=== PATIENT | male | born 1990 | race Caucasian/White ===

== ENCOUNTER 2019-07-09 10:32 | Emergency (ER) | payer MEDICAID ==
[~2019-07-09] VITALS: Ht 177.8 cm; Wt 68.2 kg
[~2019-07-09 10:32] MED LIST: NO HOME MEDS
--- NOTE | 2019-07-09 12:00 | NUR ---
Pt arrived ambulating self accompanied by [facility] officer Kelby. Per officer, Pt was found to be confused under the [employer] [address]. Pt was brought in her for confusion. Pt told Officer that he has a Hx of schizophrenia and is not taking his medications. He was admitted into bed 26. He was given [facility] scrubs and personal items and clothing were inventoried and locked in storage. He was given assistance for hygiene and given crackers, juice and ice water. Labs and urine obtained without incident. Orders placed. He appears confused but directable. He also appears to be responding to internal stimuli. He is unkempt and unclean. He is unable to state if he has significant medical history, medications, or allergies. Pt was seen in [facility] in 2016 for a significant suicide attempt.
[2019-07-09] MEDS ORDERED: nicotine 21mg patch - 24 hr TD ONE (12:25)
[2019-07-09 12:26] LABS: BASOPHILS # (AUTO) 0.1 X10'3 (0-0.2); BASOPHILS % (AUTO) 0.8 % (0-1); EOSINOPHILS # (AUTO) 0.3 X10'3 (0-0.9); EOSINOPHILS % (AUTO) 5.1 % (0-6); HEMATOCRIT 42.8 % (42.0-52.0); HEMOGLOBIN 14.3 g/dl (14.0-17.9); LYMPHOCYTES # (AUTO) 1.6 X10'3 (1.1-4.8); LYMPHOCYTES % (AUTO) 23.4 % (21-51); MEAN CORPUSCULAR HEMOGLOBIN 30.9 PG (27.0-31.0); MEAN CORPUSCULAR HGB CONC 33.4 g/dL (33.0-36.5); MEAN CORPUSCULAR VOLUME 92.6 FL (78-98); MEAN PLATELET VOLUME 8.4 FL (7.4-10.4); MONOCYTES # (AUTO) 0.7 X10'3 (0-0.9); MONOCYTES % (AUTO) 10.8 % (2-12); NEUTROPHILS # (AUTO) 4.1 X10'3 (1.8-7.7); NEUTROPHILS % (AUTO) 59.9 % (42-75); PLATELET COUNT 245 X10'3 (140-440); RED BLOOD COUNT 4.63 X10'6 (4.70-6.10); WHITE BLOOD COUNT 6.8 X10'3 (4.5-11.0)
[2019-07-09] MEDS: OLANZapine 2.5MG tablet PO SCH (12:31)
[2019-07-09 12:35] LABS: URINE AMPHETAMINE SCREEN POSITIVE (Neg); URINE BARBITUATE SCREEN NEGATIVE (Neg); URINE BENZODIAZEPINES SCREEN NEGATIVE (Neg); URINE CANNABINOID SCREEN POSITIVE (Neg); URINE COCAINE SCREEN NEGATIVE (Neg); URINE METHADONE SCREEN NEGATIVE (Neg); URINE OPIATE SCREEN NEGATIVE (Neg); URINE PHENCYCLIDINE SCREEN NEGATIVE (Neg)
[2019-07-09 12:40] LABS: ALANINE AMINOTRANSFERASE 44 U/L (12-78); ALBUMIN 4.1 G/DL (3.4-5.0); ALKALINE PHOSPHATASE 50 IU/L (46-116); ANION GAP 5 (8-16); ASPARTATE AMINO TRANSFERASE 28 U/L (10-37); BILIRUBIN,TOTAL 0.7 MG/DL (0.1-1.0); BLOOD UREA NITROGEN 13 MG/DL (7-18); BUN/CREATININE RATIO 13.4 (5.4-32.0); CHLORIDE 106 MMOL/L (99-107); CREATININE 0.97 MG/DL (0.60-1.10); ETHANOL < 0.010 GM/DL (0.0-0.010); GLUCOSE 99 MG/DL (70-104); POTASSIUM 4.1 MMOL/L (3.5-5.1); SODIUM 142 MMOL/L (135-145); TOTAL PROTEIN 8.1 G/DL (6.4-8.2); eGFR > 90 ML/MIN
--- NOTE | 2019-07-09 12:45 | NUR ---
Pt appears to be responding to internal stimuli and UA positive for meth. ordered oral Zyprexa and this was given without incident. Pt also stated that he smokes a pack of cigarettes a day. 21 mg patch was ordered and administered without incident. Pt continued to pace and request to go smoke. Explained to Pt that the patch should help him. Pt was redirectable but needed repeated reinforcement. Will continue to monitor.
--- NOTE | 2019-07-09 13:14 | NUR ---
Pt is eating lunch at bedside. No distress observed. Will continue to monitor.
--- NOTE | 2019-07-09 13:23 | NUR ---
Pt is pacing and appears anxious. MD ordered Ativan 2mg once.
[2019-07-09] MEDS ORDERED: LORazepam 1 MG tablet PO ONE (13:25)
--- NOTE | 2019-07-09 13:29 | NUR ---
Pt took oral Ativan without incident. Will continue to monitor.
--- NOTE | 2019-07-09 15:29 | NUR ---
Pt is resting in bed, supine with legs bent and knees up, no observed distress. Will continue to monitor.
--- NOTE | 2019-07-09 17:30 | NUR ---
Pt is resting in bed peacefully at this time with no observed distress. Will continue to monitor.
--- NOTE | 2019-07-09 18:30 | NUR ---
Pt is asleep at shift change. Pt is woken up and told that his dinner tray is here. Pt is cooperative with physical assessment but does not asnwer any questions aside from asking if he is feeling suicidal. Pt says he is not feeling suicidal. He appears confused, and looks around and remains quiet. When asked if he was hungry he nods his head. [employer] Officer encourages him to eat and tells him what is on his tray.
--- NOTE | 2019-07-09 21:00 | NUR ---
Pt used the restroom. He lays back down afterwards on his L side and rests quietly.
--- NOTE | 2019-07-09 23:00 | NUR ---
PT is sleeping on L side. RR WNL, no sings or sympoms of distress at this time.
--- NOTE | 2019-07-10 01:30 | NUR ---
Pt woke up and approached nursing station. He asked, "when can I have my paperwork?" staff asked what paperwork he was referring to and he replies, "the papers so I can leave." PT educated on why he was here and his mental health hold, pt verbalized understanding. Pt given a sandwhich and milk. PT used the restroom.
--- NOTE | 2019-07-10 02:45 | NUR ---
PT PACKET FAXED TO [facility].
--- NOTE | 2019-07-10 03:30 | NUR ---
Pt is resting quietly in bed, RR WNL.
--- NOTE | 2019-07-10 05:49 | NUR ---
Pt is getting his vital signs checked currently. Pt is compliant.
--- NOTE | 2019-07-10 09:13 | NUR ---
Patient is appropriate and answers questions easily. States he knows he is in the hospital but states it is due to his broken neck which occured "the month before january". He states that this happened with "bailing wire". A & O X 3, states he does not regularly use meth but does smoke marijuanna regularly. Denies suicidal, homicidal ideation. [address] SNOWDEN on unit to evaluate
--- NOTE | 2019-07-10 09:56 | NUR ---
relieving RN for break, pt is being evaluated by [facility]
--- NOTE | 2019-07-10 11:51 | NUR ---
Per [facility] SW patient observed responding to internal stimuli, speaking with someone who wasn't there. Discussed being and being able to return home, however there is no record of a spouse and patient self reports being homeless. Does not appear anxious or agitated. Will be kept on a 5150 hold with arrangements being made for inpatient treatment.
--- NOTE | 2019-07-10 12:16 | NUR ---
relieving RN for lunch, pt is resting quietly on bed, resp even and unlabored
[2019-07-10] MEDS: OLANZapine 2.5MG tablet PO SCH (13:05)
--- NOTE | 2019-07-10 14:01 | NUR ---
Patient was up and independently completing self hygiene.
--- NOTE | 2019-07-10 16:37 | NUR ---
1550 accepted by M[facility] pending a DC tomorrow 07/11/19.
--- NOTE | 2019-07-10 19:10 | NUR ---
Assuming care of Pt from Kristina Vallecillo RN. She reports Pt requires regular reorientation but that he is redirectable. He remains disoriented. Currently sitting at the edge of his bed eating his dinner tray.
--- NOTE | 2019-07-10 22:40 | NUR ---
PT SLEEPING, LYING ON HIS RIGHT SIDE WITH BLANKETS TO HIS WAIST. RR 14 AND UNLABORED.
--- NOTE | 2019-07-10 22:40 | NUR ---
MAYE: PT UNCOOPERATIVE WITH MY PHYSICAL AND PSYCH ASSESSMENTS EARLIER. I INTRODUCED MYSELF AND ASKED QUESTIONS HE KEPT HIS EYES CLOSED AND DID NOT SPEAK. PT EVENTUALLY OPENED HIS EYES WHEN I ASKED IF HE NEED ANY FOOD AND SAID YES. I ASKED IF HE WAS HOMELESS AND IF HE HAD SCHITZOPHRENIA AND HE NODDED YES TO BOTH QUESTIONS. I ASKED IF HE WAS CURRENTLY TAKING ANY MEDS AND OR IF HE KNOW WHAT TODAYS DATE WAS AND HE SHOOK HIS HEAD NO.
--- NOTE | 2019-07-11 01:00 | NUR ---
Patient is sleeping. In view from nursing station. Frequent monitoring for patient safety.
[2019-07-11 05:30] VITALS: BP 104/66
--- NOTE | 2019-07-11 06:16 | NUR ---
Patient is sleeping quietly.
--- NOTE | 2019-07-11 06:45 | NUR ---
pt sleeping on left side. equal respirations. no distress noted.
--- NOTE | 2019-07-11 10:30 | NUR ---
libertad at [facility] called stating [facility] does not have a bed but [facility] does, need tsh faxed to [phone] and a urinalysis done. nurse will call shortly for report
[2019-07-11 10:51] LABS: CLARITY,URINE SLIGHTLY CLOUDY (Clear); COLOR,URINE YELLOW (Yellow); GLUCOSE, URINE NEGATIVE (Neg); KETONES,URINE NEGATIVE (Neg); LEUKOCYTE ESTERASE ,URINE NEGATIVE (Neg); NITRITES, URINE NEGATIVE (Neg); OCCULT BLOOD,URINE NEGATIVE (Neg); PROTEIN,URINE NEGATIVE (Neg); UROBILINOGEN,URINE 0.2 E.U/dL (0.2-1.0)
[2019-07-11 10:52] LABS: UA COLLECTION TYPE CLN CATCH MIDSTREAM
--- NOTE | 2019-07-11 10:57 | NUR ---
spoke with Ellie Olmos from [employer] and gave report on pt. Stated will present report to record press supervisor and see if he can be admitted. Requested UA and TSH be sent to them and [facility] office.
[2019-07-11 11:00] LABS: BACTERIA,URINE NONE SEEN /HPF (Neg); RBC,URINE NONE SEEN /HPF (0-2); SQUAMOUS EPITHELIAL CELL,UR MODERATE /LPF (FEW); WBC,URINE 0-4 /HPF (0-4)
--- NOTE | 2019-07-11 11:08 | NUR ---
faxed UA and TSH to [facility] office per Meenu coulter
--- NOTE | 2019-07-11 11:35 | NUR ---
confirmed fax was received at [facility] office with Meenu. Stated she has sent it to [facility] and awaiting acceptance.
--- NOTE | 2019-07-11 11:36 | NUR ---
pt is sleeping in bed, no distress noted.
--- NOTE | 2019-07-11 12:04 | NUR ---
Meenu called from [facility] stated pt was accepted by Dr. Paulino. Wad Impregnator will be here around 1400 today.
[2019-07-11] MEDS: OLANZapine 2.5MG tablet PO SCH (12:20)
--- NOTE | 2019-07-11 13:30 | NUR ---
pt ambulated to bathroom with steady gait.
== END 2019-07-11 14:47 ==
LOC: ER 10:33
DX: F20.9 Schizophrenia, unspecified (principal); F79 Unspecified intellectual disabilities; R41.82 Altered mental status, unspecified; F12.90 Cannabis use, unspecified, uncomplicated; Z56.0 Unemployment, unspecified
CPT/HCPCS: 36415; 80053; 80305; 80320; 81001; 84443; 85025; 99285

== ENCOUNTER 2020-01-11 13:41 | Emergency (ER) | payer MEDICAID ==
[~2020-01-11] VITALS: Ht 177.8 cm; Wt 77.3 kg
[2020-01-11 14:26] LABS: BASOPHILS # (AUTO) 0.1 X10'3 (0-0.2); BASOPHILS % (AUTO) 0.6 % (0-1); EOSINOPHILS # (AUTO) 0.3 X10'3 (0-0.9); EOSINOPHILS % (AUTO) 3.1 % (0-6); HEMATOCRIT 47.2 % (42.0-52.0); LYMPHOCYTES # (AUTO) 1.8 X10'3 (1.1-4.8); LYMPHOCYTES % (AUTO) 17.1 % (21-51); MEAN CORPUSCULAR HEMOGLOBIN 31.3 PG (27.0-31.0); MEAN CORPUSCULAR VOLUME 92.1 FL (78-98); MEAN PLATELET VOLUME 8.5 FL (7.4-10.4); MONOCYTES # (AUTO) 0.5 X10'3 (0-0.9); MONOCYTES % (AUTO) 5.1 % (2-12); NEUTROPHILS # (AUTO) 7.7 X10'3 (1.8-7.7); NEUTROPHILS % (AUTO) 74.1 % (42-75); PLATELET COUNT 285 X10'3 (140-440); RED BLOOD COUNT 5.13 X10'6 (4.70-6.10); RED CELL DISTRIBUTION WIDTH 13.8 % (11.5-14.5); WHITE BLOOD COUNT 10.3 X10'3 (4.5-11.0)
[2020-01-11 14:41] LABS: ALANINE AMINOTRANSFERASE 76 U/L (12-78); ALKALINE PHOSPHATASE 62 IU/L (46-116); ANION GAP 9 (8-16); ASPARTATE AMINO TRANSFERASE 39 U/L (10-37); BILIRUBIN,TOTAL 0.5 MG/DL (0.1-1.0); BLOOD UREA NITROGEN 11 MG/DL (7-18); BUN/CREATININE RATIO 13.3 (5.4-32.0); CALCIUM 9.5 MG/DL (8.5-10.1); CHLORIDE 104 MMOL/L (99-107); CREATININE 0.83 MG/DL (0.60-1.10); GLUCOSE 156 MG/DL (70-104); POTASSIUM 4.1 MMOL/L (3.5-5.1); SODIUM 142 MMOL/L (135-145); TOTAL CARBON DIOXIDE 29.4 MMOL/L (24-32); TOTAL PROTEIN 7.9 G/DL (6.4-8.2); eGFR > 90 ML/MIN
[2020-01-11 14:52] LABS: ETHANOL < 0.010 GM/DL (0.0-0.010)
[2020-01-11 16:44] LABS: CLARITY,URINE CLEAR (Clear); COLOR,URINE YELLOW (Yellow); GLUCOSE, URINE NEGATIVE (Neg); KETONES,URINE NEGATIVE (Neg); LEUKOCYTE ESTERASE ,URINE NEGATIVE (Neg); NITRITES, URINE NEGATIVE (Neg); OCCULT BLOOD,URINE NEGATIVE (Neg); PROTEIN,URINE NEGATIVE (Neg); UROBILINOGEN,URINE 0.2 E.U/dL (0.2-1.0)
[2020-01-11 16:46] LABS: UA COLLECTION TYPE NON-SPECIFIED
[2020-01-11 16:56] LABS: URINE AMPHETAMINE SCREEN POSITIVE (Neg); URINE BARBITUATE SCREEN NEGATIVE (Neg); URINE BENZODIAZEPINES SCREEN NEGATIVE (Neg); URINE CANNABINOID SCREEN POSITIVE (Neg); URINE COCAINE SCREEN NEGATIVE (Neg); URINE METHADONE SCREEN NEGATIVE (Neg); URINE OPIATE SCREEN NEGATIVE (Neg); URINE PHENCYCLIDINE SCREEN NEGATIVE (Neg)
--- NOTE | 2020-01-11 19:45 | NUR ---
patient up to use rest room and back to bed #13 covers on eyes closed rr even un labored no observable s/s of acute stress at this time
--- NOTE | 2020-01-11 23:19 | NUR ---
PATIENT IN BED COVERS ON EYES CLOSED RR EVEN UN LABORED NO OBSERVABLE S/S OF ACUTE STRESS AT THIS TIME
--- NOTE | 2020-01-12 01:30 | NUR ---
ASSUMED CARE OF PATIENT ASLEEP IN BED ON RIGHT SIDE . RESP UNLABORED . PT IN THE DIRECT LINE OF SIGHT OF STAFF WILL CONTINUE TO MONITOR AND REASSESS NEEDED
--- NOTE | 2020-01-12 02:51 | NUR ---
PT IN THE LINE OF SIGHT OF STAFF SLEEPING ON HIS RIGHT SIDE RESP UNLABORED WILL CONTINUE TO MONITOR ND REASESS
--- NOTE | 2020-01-12 03:03 | NUR ---
SOILA ARROYO SIGNED AND FAXED TO PHARMACY
--- NOTE | 2020-01-12 03:32 | NUR ---
DIET ORDER FAXED TO [facility]
--- NOTE | 2020-01-12 03:33 | NUR ---
NO CHANGES TO PREVIOUS ASSESMENT . RESP UNLABORED . PT IN THE LINE OF SIGHT OF STAFF WILL CONTINUE TO MOITOR AND REASSESS
--- NOTE | 2020-01-12 04:07 | NUR ---
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 PT ASKING IF HE CAN GO HOME . VERBALIZED TO JESSE THAT HE WILL BE EVALUATED BY [facility] IN THE AM .
--- NOTE | 2020-01-12 04:19 | NUR ---
PT TOSSING AN DTURNING / COOPORATIVE IN THE LINE OF SITE O FSTAFF WRESP UNLABORED WILL CONTINUE TO MONITOR AND REASSESS
--- NOTE | 2020-01-12 04:26 | NUR ---
PACKET FAXED TO [facility]
--- NOTE | 2020-01-12 05:30 | NUR ---
PT SLEEPING PEACFULLY ON HIS LEFT SIDE . RESP UNLABORED IN THE DRIECT LINE OF SIGHT WITH STAFF . WILL CONTINUE TO MONITOR AND REASSESS
[2020-01-12 05:59] VITALS: BP 106/64
--- NOTE | 2020-01-12 06:39 | NUR ---
PT RESTING WITH EYES CLOSED, EFFORTLESS RESPIRATIONS OBSERVED.
--- NOTE | 2020-01-12 10:53 | NUR ---
breaking primary RN, sitter w/in eyesite of pt, no agitation observed
== END 2020-01-12 18:10 | disposition home or self-care (01) ==
LOC: ER 13:42
DX: F15.159 Other stimulant abuse with stimulant-induced psychotic disorder, unspecified (principal); F20.9 Schizophrenia, unspecified; F12.90 Cannabis use, unspecified, uncomplicated; F31.9 Bipolar disorder, unspecified; Z72.89 Other problems related to lifestyle; Z56.0 Unemployment, unspecified
CPT/HCPCS: 36415; 80053; 80305; 80320; 81003; 84443; 85025; 99285

== ENCOUNTER 2021-04-19 13:49 | Emergency (ER) | payer MEDICAID | END 2021-04-19 17:57 | disposition left against medical advice (07) | LOC: ER 13:50 | DX: J00 Acute nasopharyngitis [common cold] (principal); Z53.21 Procedure and treatment not carried out due to patient leaving prior to being seen by health care provider ==

== ENCOUNTER 2021-05-25 19:56 | Emergency (ER) | payer MEDICAID ==
[~2021-05-25] VITALS: Ht 172.7 cm; Wt 61.4 kg
[2021-05-25 19:57] VITALS: BP 168/95
== END 2021-05-25 20:42 | disposition home or self-care (01) ==
LOC: ER 19:57
DX: S70.02XA Contusion of left hip, initial encounter (principal); F15.10 Other stimulant abuse, uncomplicated; F31.9 Bipolar disorder, unspecified; F20.9 Schizophrenia, unspecified; F12.90 Cannabis use, unspecified, uncomplicated; Z72.89 Other problems related to lifestyle; Z56.0 Unemployment, unspecified; W22.8XXA Striking against or struck by other objects, initial encounter; Y93.89 Activity, other specified; Y92.89 Other specified places as the place of occurrence of the external cause; Y99.8 Other external cause status
CPT/HCPCS: 99283